=== PATIENT | female | born 2000 | race Caucasian/White ===

== ENCOUNTER 2024-08-09 14:31 | Inpatient (IN) ==
[2024-08-09 16:41] LABS: Basophils # (auto) 0.05 K/uL (0.00-0.20); Basophils % (auto) 0.5 %; Eosinophils % (auto) 1.9 %; Hematocrit (blood only) 36.1 % (37.0-47.0); Hemoglobin 11.9 g/dl (12.0-16.0); Immature Granulocytes # (auto) 0.06 K/uL (0.01-0.20); Immature Granulocytes % (auto) 0.6 %; Lymphocytes # (auto) 2.18 K/uL (1.20-3.40); Lymphocytes % (auto) 20.8 %; Mean Corpuscular Hemoglobin 30.3 pg (25.0-34.0); Mean Corpuscular Volume 91.9 fL (80.0-100.0); Mean Platelet Volume 9.7 fL (9.4-12.4); Monocytes # (auto) 0.76 K/uL (0.11-0.59); Monocytes % (auto) 7.3 %; Neutrophils # (auto) 7.22 K/uL (1.40-6.50); Neutrophils % (auto) 68.9 %; Platelet Count 281 K/uL (130-400); RDW Coefficient of Variation 12.8 % (11.5-14.5); RDW Standard Deviation 42.5 fL (36.4-46.3); Red Blood Count 3.93 M/uL (4.20-5.40); White Blood Count 10.47 K/ul (4.8-10.8)
[2024-08-09] MEDS: SODIUM CHLORIDE 0.9% 1,000 ML IV ONE (17:00)
[2024-08-09 17:01] LABS: Albumin Globulin Ratio 1.5 (0.9-2); Albumin Level 4.3 gm/dl (3.4-5.0); BUN Creatinine Ratio 16.5 (10-20); Bilirubin,Total 0.5 mg/dl (0.2-1.0); Calcium 9.4 mg/dl (8.6-10.3); Creatinine Clr Calc Pharmacy 113.6 ml/min; Globulin 2.8 gm/dl (2.5-4.0); Potassium 4.1 mmol/L (3.5-5.1); Total Protein 7.1 gm/dl (6.0-8.3)
--- NOTE | 2024-08-09 18:27 | Ultrasound Report ---
APPENDIX ULTRASOUND HISTORY: Right lower quadrant abdominal pain. COMPARISON: None. FINDINGS: The appendix was not visualized by sonography. A small amount of fluid within the right low er quadrant was noted. IMPRESSION: 1. Nonvisualization of the appendix. 2. Small amount of fluid within the right lower quadrant. ACT 112: Negative or not required by law. Electronically signed by: Osvaldo Luna M.D. 08/09/2024 6:25 PM
--- NOTE | 2024-08-09 18:35 | Ultrasound Report ---
PELVIC ULTRASOUND CLINICAL HISTORY: Right lower quadrant pain. COMPARISON STUDY: None. TECHNIQUE: Transabdominal and transvaginal sonography of the pelvis was performed. FINDINGS: Uterus measures 7.4 x 3.7 x 6.4 cm. Endometrium is normal thickness, measuring 5 mm. There is color flow within each ovary. The right ovary measures 3.3 x 1.7 x 2.4 cm and the left ovary measu res 4.1 x 1.8 x 2.7 cm. A small amount of fluid within the pelvis is present. IMPRESSION: 1. Unremarkable sonographic appearance of the uterus and ovaries. 2. Small amount of fluid within the pelvis. ACT 112: Negative or not required by law. Electronically signed by: Osvaldo Luna M.D. 08/09/2024 6:33 PM
[2024-08-09] MEDS: OPTIRAY 320 100ml IV ONE (19:33)
--- NOTE | 2024-08-09 20:14 | CT Scan Report ---
Exam(s): CT ABDOMEN + PELVIS With Contrast IV Amt: 91 ml optiray 320 EXAM: CT Abdomen and Pelvis With Intravenous Contrast CLINICAL HISTORY: Reason for exam: rlq pain. TECHNIQUE: Axial computed tomography images of the abdomen and pelvis with intravenous contrast. CTDI is es edema 15.93 mGy and DLP is 768.86 mGy- cm. Automated exposure control was utilized for the study. A dose lowering technique was utilized adhering to the principles of ALARA. CONTRAST: Patient received 91 ml optiray 320 of IV contrast COMPARISON: No relevant prior studies available. FINDINGS: Lung bases: Unremarkable. No mass. No consolidation. ABDOMEN: Liver: Unremarkable. No mass. Gallbladder and bile ducts: Unremarkable. No calcified stones. No ductal dilation. Pancreas: Unremarkable. No mass. No ductal dilation. Spleen: Unremarkable. No splenomegaly. Adrenals: Unremarkable. No mass. Kidneys and ureters: Unremarkable. No solid mass. No hydronephrosis. Stomach and bowel: Unremarkable. No obstruction. No mucosal thickening. PELVIS: Appendix: There is a retrocecal inflamed appendix measuring up to 11 mm in diameter. Periappendiceal inflammatory stranding is seen. Bladder: Unremarkable. No mass. Reproductive: Unremarkable as visualized. ABDOMEN and PELVIS: Intraperitoneal space: Trace free fluid seen in the pelvis. No free air. Bones/joints: No acute fracture. No dislocation. Soft tissues: Unremarkable. Vasculature: Unremarkable. No abdominal aortic aneurysm. Lymph nodes: Unremarkable. No enlarged lymph nodes. IMPRESSION: Acute nonperforated appendicitis Electronically signed by: Franco Solorio MD 08/09/24 20:13 PM
[2024-08-09 20:47] LABS: Appearance Urine Clear (Clear); Bilirubin Urine Negative (Negative); Blood Urine Negative (Negative); Color Urine Yellow; Glucose Urine UA Negative (Negative); Ketones Urine Negative (Negative); Leukocyte Esterase Urine Negative (Negative); Nitrite Urine Negative (Negative); Protein Urine Negative (Negative); Specific Gravity Urine 1.004 (1.000-1.030); Urobilinogen Urine Negative (Negative)
[2024-08-09] MEDS: cefOXitin 2,000 MG/60 ML BAG IV STA (20:50)
[2024-08-09] MEDS: PIPERACILLIN/TAZOBACTAM 4.5 GM/100 ML BAG IV ONE (21:06)
[2024-08-09] MEDS ORDERED: ONDANSETRON INJ 2 MG/ML 2 ML VIAL IV PRN (21:22)
[2024-08-09] MEDS ORDERED: MoRPHine SULFATE 4 MG/ML 1 ML CARP\\VIAL IV PRN (21:22)
[2024-08-09] MEDS ORDERED: ACETAMINOPHEN 1,000 MG/100 ML VIAL IV PRN (21:22)
--- NOTE | 2024-08-09 21:22 | History & Physical Report ---
<Statement entered by Jennifer Connolly DO - 08/10/24 08:24> This case was discussed with the surgical PA. Consent will be obtained for laparoscopic appendectomy planned for this am. Date of Service August 09, 2024 Assessment & Plan (1) Appendicitis: Plan: I discussed the case with the treating emergency room physician and due to the patient's clinical presentation and findings on imaging she will be admitted to the surgical service proceeding as follows: N.p.o. status will be implemented Analgesics will be provided Antiemetics to be provided Will hydrate her with IV fluids Antibiotics in form of Zosyn have been initiated in the emergency department will continue We will tentatively planning on having the patient undergo an appendectomy with Dr. Gale on 08/10/2024. At the time of my interview with the patient she was nontoxic-appearing. She was normotensive without tachycardia fever and did not exhibit cytosis or acute kidney injury. There is also noteworthy to mention that the patient did have solid oral intake up until approximate 4:00 PM and I did discuss with her anesthesia department and they prefer that the patient be n.p.o. for a minimum of 6 hours prior to undergoing general anesthesia. Again, the patient is nontoxic-appearing so we will proceed with the plan as outlined above and plan for surgical intervention on 08/10/2024 Will use SCDs for DVT prevention, no chemical means due to planned surgery She will be a level 1 full code At the patient's request I did call her parents and spoke with her mother Sara and updated her on the above. She can be reached at [phone] Addendum (5:10 AM) Patient revisited at bedside. She notes that she has been resting comfortably throughout the night. She denies any worsening abdominal pain. She denies any fevers, shakes, or chills. She has remained normotensive without tachycardia or fever. Her abdominal exam is essentially benign at this time. Patient's mother has arrived since her admission and she was updated at bedside. Will continue with plan as outlined above History of Present Illness Chief Complaint: Abdominal pain Primary Care Provider: [facility] This is a 23-year-old female who presented to the emergency department secondary to abdominal pain for approximately 2 days. She says that the pain has been confined to the right lower quadrant. She does not have any nausea or vomiting. She felt warm at times but admits she did not take her temperature. She notes that the pain was slightly improved with taking Advil and worse with certain movements. Because the pain did not improve over 2 days however she presented the emergency department. She has never had any abdominal surgeries in the past. The patient notes that she was eating fruit snacks up until approximately 4:00 PM today and has been drinking water since arrival to the emergency department. Since arrival to the hospital the patient has had labs and imaging which independent reviewed. Patient did have a pelvic ultrasound that showed an unremarkable sonographic appearance of the uterus and ovaries without small amount of fluid in the pelvis. She had an appendix ultrasound that showed nonvisualization of the appendix and a small amount of fluid in the right lower quadrant. A CT scan of the abdomen and pelvis was ultimately performed which showed that the patient had a retrocecal inflamed appendix which measured approximately 11 mm in diameter. There is some periappendiceal inflammatory stranding. There is trace fluid in the pelvis but no free air was noted. The appendix appeared nonperforated. Labs included CBC with a white blood cell count and platelet count were normal. Hemoglobin and hematocrit were 11.9 and 36.1. Chemistry profile showed sodium and potassium as well as the BUN and creatinine were normal. There is no elevation of her LFTs or lipase. A urinalysis was not indicative of infection. A test was noted to be negative. At the time of my interview she was resting comfortably bed and she was in no distress. Concerning past medical history the patient has been treated for depression Concerning past surgical history she has had ear tubes as a child Concerning allergies she denies any allergies Concerning social history she does not smoke or vape Concerning family history she says that several family members had ovarian cysts Allergies Allergy/AdvReac Type Severity Reaction Status Date / Time No Known Allergies Allergy Unverified 08/09/24 21:46 Past Med/Surg History Problem List (Updated 08/09/24 @ 21:57 by Enzo Jc MD) Appendicitis (Acute) Medical History No pertinent past medical history No pertinent family history Surgical History No pertinent past surgical history Social History Smoking Status: Never smoker Second Hand Exposure: No; Do You Dip or Chew Tobacco: No; Tobacco Cessation Education Requested by Patient: No Hx Alcohol Use: Yes Alcohol type: beer Hx Substance Use: No Preferred Language: Cambodian Communication Ability: Effective Residence Hall Director Required: No Beliefs That Will Affect Care: None Current Living Situation: Other Current Living Situation Comment: [employer] student, [place] room-mate Other Information That Helps Us Care for You: No Feels Safe at Home: Yes Safety Concerns: Feels Safe At This Time Assistive Devices: None Review of Systems Review of Systems: All systems reviewed & are unremarkable except as noted in HPI & below Physical Exam Constitutional: WD/WN, vitals as above Eyes: no conjunctival abnormality ENMT: Ears: no hearing impairment and no external ear abnormality Mouth: no oropharynx abnormality Neck: trachea midline Respiratory: normal respiratory effort; no respiratory distress and no labored breathing Cardiovascular: Rate/Rhythm: regular rate and regular rhythm Gastrointestinal (Abdomen): Abdomen is soft and nondistended. Abdomen is not rigid. Patient did have pain with deep palpation of right lower quadrant with some slight rebound tenderness noted. Patient does not have any guarding noted. Musculoskeletal: No calf tenderness Skin: no rashes Neurologic: moves all extremities Psychiatric: Orientation: alert and oriented x 3 Affect: + anxious affect Results & Data Results & Data Vital Signs (Past 12 Hours) Vital Signs Temp Pulse Pulse Resp BP BP Pulse Ox 08/09/24 21:08 54 L 18 98 08/09/24 21:00 55 L 17 121/65 98 08/09/24 14:50 37 C 71 18 111/71 97 O2 Del Method 08/09/24 21:08 Room Air 08/09/24 21:00 Room Air 08/09/24 14:50 Room Air PG Care Time/CCT Total # of Minutes Spent Total Time Spent with Patient: Total time spent is greater than 50% in coordination of care (as documented) at patient's floor/unit and/or counseling patient: Coding Level of Care Code 65633 INT INP/OBS CARE 3/75MIN Diagnoses Appendicitis K37
[2024-08-09] MEDS: Patient's ALLERGY Info needs ENTERED STA (21:49)
--- NOTE | 2024-08-09 21:57 | Emergency Department Note ---
History of Present Illness General Chief Complaint: Abdominal Pain Stated Complaint: ABD PAIN Time Seen by Provider: 08/09/24 16:23 History of Present Illness Provider Complaint: abdominal pain Onset (ago): 3 day(s) Pain Consistency: intermittent Location: RLQ Severity: moderate Maximum Pain Intensity: 4 Current Pain Intensity: 4 Quality: + sharp Relieved By: + nothing Exacerbated By: + nothing Context: no foreign travel, no possible food poisoning, no sick contacts, no recent antibiotic use, no recent surgery/procedure, no recent injury or no history of similar episodes Associated Symptoms: no nausea, no vomiting, no diarrhea, no fever, no chills, no constipation, no dysuria, no hematemesis, no melena, no hematuria, no headache, no neck pain, no chest pain and no breathing difficulty Related Data Last Menstrual Period: 1 week Patient Confirmed : No Allergies Allergy/AdvReac Type Severity Reaction Status Date / Time No Known Allergies Allergy Unverified 08/09/24 21:46 Past Med/Surg History Problem List (Updated 08/09/24 @ 21:57 by Enzo Jc MD) Appendicitis (Acute) Medical History No pertinent past medical history No pertinent family history Surgical History No pertinent past surgical history Social History Smoking Status: Never smoker Preferred Language: Iraqi Feels Safe at Home: Yes Physical Exam 2 Vital Signs: Vital Signs - 24 hr 08/09/24 14:50 08/09/24 21:00 08/09/24 21:08 Temperature 37 C Temperature Source Temporal Artery Sc an Pulse Rate 71 54 L Pulse Rate [Finger ] 55 L Respiratory Rate 18 17 18 Respiratory Effort / Characteristics Non-Labored Sponta neous Respiratory Depth Normal Respiratory Patter n Regular Blood Pressure 111/71 Blood Pressure [Ri ght Arm] 121/65 Blood Pressure Reena n 84 Blood Pressure Reena n [Right Arm] 83 Pulse Oximetry 97 98 98 Oxygen Delivery Me thod Room Air Room Air Room Air Sepsis Recent Feve r Within 48 Hours No Sepsis New/Unexpla ined Change in Men galina Status No Sepsis Action Take n by Nursing No Action Required 08/09/24 21:47 Temperature Temperature Source Pulse Rate Pulse Rate [Finger ] 60 Respiratory Rate 16 Respiratory Effort / Characteristics Non-Labored Sponta neous Respiratory Depth Normal Respiratory Patter n Regular Blood Pressure Blood Pressure [Ri ght Arm] 121/65 Blood Pressure Reena n Blood Pressure Reena n [Right Arm] 83 Pulse Oximetry 99 Oxygen Delivery Me thod Room Air Sepsis Recent Feve r Within 48 Hours Sepsis New/Unexpla ined Change in Men galina Status Sepsis Action Take n by Nursing Physical Exam: Physical Exam GENERAL: oriented to person, place, and time. appears well-developed and well- nourished. She does not appear distressed. HENT: Exam performed. -Head: Normocephalic and atraumatic. -Right Ear: External ear normal. No mastoid erythema -Left Ear: External ear normal. No mastoid erythema -Mouth/Throat: The oropharynx is clear and moist. No trismus in the jaw. No dental abscesses or uvula swelling. No oropharyngeal exudate or tonsillar abscesses. EYES: Conjunctivae and EOM are normal.Right eye exhibits no discharge. Left eye exhibits no discharge. No scleral icterus. NECK: Normal range of motion. Neck supple. No JVD present. No tracheal deviation and normal range of motion present. CV: Normal rate, regular rhythm, normal heart sounds and intact distal pulses. There is no peripheral edema. Palpable radial pulses bue. PULM/CHEST: Effort normal and breath sounds normal. No respiratory distress. No stridor. no wheezes.no rales. -Chest Wall: no tenderness to palpation ABD: The abdomen is soft. Bowel sounds are normal. no distension. No mass is present. There is tenderness to palpation of the right lower quadrant. There is no rebound, no guarding, no Ugalde's sign and Rovsig negative MUSC/SKEL: Normal range of motion. There is no peripheral edema, tenderness or deformity. NEURO: Motor and sensation grossly intact. SKIN: Skin is warm and dry. not diaphoretic. PSYCH: normal mood and affect. Behavior is normal. Judgment and thought content normal. Course Course 162: The patient was evaluated in room D2. A complete history and physical exam was performed Cardiac monitoring: An order was placed for continuous cardiac monitoring. The monitor shows a rate of 60 with sinus rhythm interpreted by me 2105: Vital signs stable. Labs are unremarkable. Imaging shows appendicitis. Patient will be admitted to general surgery. Cefoxitin ordered for the patient. Mack Falcon will evaluate the patient for Dr. Mohamud Pacheco Administered Medications Discontinued Medications Sodium Chloride (Nss) 1,000 mls @ 999 mls/hr IV .Q1H1M ONE Stop: 08/09/24 17:49 Last Infusion: 08/09/24 19:46 Dose: Infused Documented By: Admin: 08/09/24 17:00 Dose: 999 mls/hr Documented By: RACIEL Cefoxitin Sodium (Mefoxin) 2,000 mg in 60 mls @ 100 mls/hr IV NOW STA Stop: 08/09/24 21:06 Last Admin: 08/09/24 20:50 Dose: Not Given Documented By: FARHEEN Piperacillin Sod/Tazobactam Sod (Zosyn) 4.5 gm in 100 mls @ 200 mls/hr IV NOW ONE Stop: 08/09/24 21:18 Last Infusion: 08/09/24 21:40 Dose: Infused Documented By: Admin: 08/09/24 21:06 Dose: 200 mls/hr Documented By: FARHEEN Ioversol (Optiray 320 100ml) 91 ml IV ONCE ONE Stop: 08/09/24 19:34 Last Admin: 08/09/24 19:33 Dose: 91 ml Documented By: ANDREI Miscellaneous Information (Patient's Allergy Info Needs Entered) 1 each N/A ONE STA Stop: 08/09/24 21:33 Last Admin: 08/09/24 21:49 Dose: 1 each Documented By: FARHEEN Medical Decision Making Laboratory Data Attestation: I reviewed the patient's lab results. 08/09/24 15:41 08/09/24 15:41 Lab Results 08/09/24 08/09/24 08/09/24 Range/Units 15:41 20:30 20:41 WBC 10.47 (4.8-10.8) K/ul RBC 3.93 L (4.20-5.40) M/uL Hgb 11.9 L (12.0-16.0) g/dl Hct 36.1 L (37.0-47.0) % MCV 91.9 (80.0-100.0) fL MCH 30.3 (25.0-34.0) pg MCHC 33.0 (32.0-36.0) g/dL RDW Std Deviation 42.5 (36.4-46.3) fL RDW Coeff of Rolf 12.8 (11.5-14.5) % Plt Count 281 (130-400) K/uL MPV 9.7 (9.4-12.4) fL Immature Gran % (Auto) 0.6 % Neut % (Auto) 68.9 % Lymph % (Auto) 20.8 % [place] % (Auto) 7.3 % Eos % (Auto) 1.9 % Baso % (Auto) 0.5 % Neut # (Auto) 7.22 H (1.40-6.50) K/uL Lymph # (Auto) 2.18 (1.20-3.40) K/uL [place] # (Auto) 0.76 H (0.11-0.59) K/uL Eos # (Auto) 0.20 (0.00-0.50) K/uL Baso # (Auto) 0.05 (0.00-0.20) K/uL Immature Gran # (Auto) 0.06 (0.01-0.20) K/uL Sodium 138 (136-145) mmol/L Potassium 4.1 (3.5-5.1) mmol/L Chloride 103 (98-107) mmol/L Carbon Dioxide 28 (21-32) mmol/L Anion Gap 7 (3-11) BUN 13 (6-23) mg/dl Creatinine 0.79 (0.6-1.2) mg/dl Est Cr Clr Drug Dosing 113.6 ml/min Est GFR ( Amer) 124.0 ml/min Est GFR (Non-Af Amer) 107.0 ml/min BUN/Creatinine Ratio 16.5 (10-20) Glucose 90 (70-99(Fasting)) mg/dl Calcium 9.4 (8.6-10.3) mg/dl Total Bilirubin 0.5 (0.2-1.0) mg/dl AST 17 (13-39) U/L ALT 9 (7-52) U/L Alkaline Phosphatase 86 (34-104) U/L Total Protein 7.1 (6.0-8.3) gm/dl Albumin 4.3 (3.4-5.0) gm/dl Globulin 2.8 (2.5-4.0) gm/dl Albumin/Globulin Ratio 1.5 (0.9-2) Lipase 26 (11-82) U/L Urine Color Yellow Urine Appearance Clear (Clear) Urine pH 7.0 (4.5-7.5) Ur Specific [place] 1.004 (1.000-1.030) Urine Protein Negative (Negative) Urine Glucose (UA) Negative (Negative) Urine Ketones Negative (Negative) Urine Blood Negative (Negative) Urine Nitrite Negative (Negative) Urine Bilirubin Negative (Negative) Urine Urobilinogen Negative (Negative) Ur Leukocyte Esterase Negative (Negative) POC Ur Test NEG (NEG) Imaging Data Radiologist's Impression: Abdomen/Pelvis CT 08/09/24 16:49 Exam(s): CT ABDOMEN + PELVIS With Contrast IV Amt: 91 ml optiray 320 EXAM: CT Abdomen and Pelvis With Intravenous Contrast CLINICAL HISTORY: Reason for exam: rlq pain. TECHNIQUE: Axial computed tomography images of the abdomen and pelvis with intravenous contrast. CTDI is es edema 15.93 mGy and DLP is 768.86 mGy- cm. Automated exposure control was utilized for the study. A dose lowering technique was utilized adhering to the principles of ALARA. CONTRAST: Patient received 91 ml optiray 320 of IV contrast COMPARISON: No relevant prior studies available. FINDINGS: Lung bases: Unremarkable. No mass. No consolidation. ABDOMEN: Liver: Unremarkable. No mass. Gallbladder and bile ducts: Unremarkable. No calcified stones. No ductal dilation. Pancreas: Unremarkable. No mass. No ductal dilation. Spleen: Unremarkable. No splenomegaly. Adrenals: Unremarkable. No mass. Kidneys and ureters: Unremarkable. No solid mass. No hydronephrosis. Stomach and bowel: Unremarkable. No obstruction. No mucosal thickening. PELVIS: Appendix: There is a retrocecal inflamed appendix measuring up to 11 mm in diameter. Periappendiceal inflammatory stranding is seen. Bladder: Unremarkable. No mass. Reproductive: Unremarkable as visualized. ABDOMEN and PELVIS: Intraperitoneal space: Trace free fluid seen in the pelvis. No free air. Bones/joints: No acute fracture. No dislocation. Soft tissues: Unremarkable. Vasculature: Unremarkable. No abdominal aortic aneurysm. Lymph nodes: Unremarkable. No enlarged lymph nodes. IMPRESSION: Acute nonperforated appendicitis Electronically signed by: Franco Solorio MD 08/09/24 20:13 PM Appendix Ultrasound 08/09/24 16:49 APPENDIX ULTRASOUND HISTORY: Right lower quadrant abdominal pain. COMPARISON: None. FINDINGS: The appendix was not visualized by sonography. A small amount of fluid within the right lower quadrant was noted. IMPRESSION: 1. Nonvisualization of the appendix. 2. Small amount of fluid within the right lower quadrant. ACT 112: Negative or not required by law. Electronically signed by: Osvaldo Luna M.D. 08/09/2024 6:25 PM Pelvis Ultrasound 08/09/24 16:49 PELVIC ULTRASOUND CLINICAL HISTORY: Right lower quadrant pain. COMPARISON STUDY: None. TECHNIQUE: Transabdominal and transvaginal sonography of the pelvis was performed. FINDINGS: Uterus measures 7.4 x 3.7 x 6.4 cm. Endometrium is normal thickness, measuring 5 mm. There is color flow within each ovary. The right ovary measures 3.3 x 1.7 x 2.4 cm and the left ovary measures 4.1 x 1.8 x 2.7 cm. A small amount of fluid within the pelvis is present. IMPRESSION: 1. Unremarkable sonographic appearance of the uterus and ovaries. 2. Small amount of fluid within the pelvis. ACT 112: Negative or not required by law. Electronically signed by: Osvaldo Luna M.D. 08/09/2024 6:33 PM MDM Narrative 1623: The patient was evaluated in room D2. A complete history and physical exam was performed Cardiac monitoring: An order was placed for continuous cardiac monitoring. The monitor shows a rate of 60 with sinus rhythm interpreted by ak 2105: Vital signs stable. Labs are unremarkable. Imaging shows appendicitis. Patient will be admitted to general surgery. Cefoxitin ordered for the patient. Mack Falcon will evaluate the patient for Dr. Mohamud Pacheco Impression & Plan Appendicitis Discharge Plan Visit Data Chief Complaint: Abdominal Pain Stated Complaint: ABD PAIN ED Provider: Enzo Jc Discharge Problem: Appendicitis Patient Disposition: Admitted As Inpatient Forms Stand Alone Forms: [facility] Referrals Referrals: [place] [Primary Care Provider] - Discharge Problem: Appendicitis Qualifiers: Appendicitis type: acute appendicitis Acute appendicitis type: unspecified acute appendicitis type Qualified Code(s): K35.80 - Unspecified acute appendicitis
[2024-08-09] MEDS: SODIUM CHLORIDE 0.9% 1,000 ML IV SCH (22:35)
[2024-08-09] MEDS: MELATONIN 3 MG TAB PO PRN (23:12)
[2024-08-10] MEDS: PIPERACILLIN/TAZOBACTAM 4.5 GM/100 ML BAG IV SCH (01:47)
--- NOTE | 2024-08-10 08:31 | Anesthesiology Consultation ---
Date of Service August 10, 2024 Assessment & Plan Chart Review Chart Review: Acceptable Risk for Surgery and Patient NOT seen in Pre Admission Testing Consults Requested none ASA ASA2 Proposed Anesthesia Anesthesia Type: General History Surgery Operation Date: 08/10/24 07:10 Proposed Procedures p Laparoscopic Appendectomy Possible Open - Jennifer Connolly, Height/Weight Height: 5 ft 8 in Weight: 69.4 kg Allergies Allergy/AdvReac Type Severity Reaction Status Date / Time No Known Allergies Allergy Unverified 08/09/24 21:46 Medications Home Medications Medication Instructions Recorded Confirmed Last Taken oxycodone 5 mg tablet 5 - 10 mg (1 - 2 x 5 mg) PO 08/10/24 Unknown .[id number] PRN pain #15 tabs Active Medications Generic Name Dose Route Start Last Admin Trade Name Freq PRN Reason Stop Dose Admin Sodium Chloride 1,000 mls @ 125 mls/hr 08/09/24 21:30 08/10/24 05:52 Nss IV 09/08/24 21:29 125 mls/hr .Q8H [place] Administration Piperacillin Sod/Tazobactam Sod 4.5 gm in 100 mls @ 25 mls/hr 08/10/24 02:00 08/10/24 05:48 Zosyn IV 08/20/24 01:59 Infused Q8H [place] Infusion Melatonin 3 mg 08/09/24 22:53 08/09/24 23:12 Melatonin 3 Mg Tab PO 09/08/24 22:52 3 mg HS PRN Administration Sleep Past Medical History Medical History No pertinent past medical history No pertinent family history anemia Exercise / Class Metabolic Activity 1 > 8 Run/Swim/Ski/Tennis Past Surgical History Surgical History No pertinent past surgical history Past Anesthesia History No Hx of Anesthesia Complications and No Family Hx of Anesthesia Complications History of PONV No Hx of PONV and No Hx of Motion Sickness Social History Smoking Status: Never smoker Do You Dip or Chew Tobacco: No Hx Alcohol Use: Yes Alcohol type: beer alcohol intake frequency: a few times a week Hx Substance Use: No Physical Exam Vital Signs Last Vital Signs Temp 36.6 C 08/10/24 07:04 Pulse 52 L 08/10/24 07:04 Resp 18 08/10/24 07:04 BP 105/67 08/10/24 07:04 Pulse Ox 100 08/10/24 07:04 O2 Del Method Room Air 08/10/24 07:04 Testing Laboratory Results 08/09/24 15:41 08/09/24 15:41 Urine Color Yellow 08/09/24 20:30 Urine Appearance Clear (Clear) 08/09/24 20:30 Urine pH 7.0 (4.5-7.5) 08/09/24 20:30 Ur Specific [place] 1.004 (1.000-1.030) 08/09/24 20:30 Urine Protein Negative (Negative) 08/09/24 20:30 Urine Glucose (UA) Negative (Negative) 08/09/24 20:30 Urine Ketones Negative (Negative) 08/09/24 20:30 Urine Nitrite Negative (Negative) 08/09/24 20:30 Ur Leukocyte Esterase Negative (Negative) 08/09/24 20:30 08/09/24 20:41 POC Ur Test NEG
[2024-08-10] MEDS ORDERED: PROPOFOL IV EMULSION 10 MG/ML 20 ML VIAL IV ONE (08:36)
[2024-08-10] MEDS ORDERED: DEXAMETHASONE SOD INJ 4 MG/ML VIAL ONE (08:36)
[2024-08-10] MEDS ORDERED: ONDANSETRON INJ 2 MG/ML 2 ML VIAL ONE (08:36)
[2024-08-10] MEDS ORDERED: LIDOCAINE 2% 2 ML VIAL/AMP(20MG/ML) INFIL ONE (08:36)
[2024-08-10] MEDS ORDERED: ROCURONIUM BROMIDE 10 MG/ML 5 ML VIAL IV ONE (08:36)
[2024-08-10] MEDS ORDERED: MIDAZOLAM HCL 1 MG/ML 2ML VIAL ONE (08:37)
[2024-08-10] MEDS ORDERED: fentaNYL citrate PF 100 MCG/2 ML VIAL ONE (08:37)
[2024-08-10] MEDS: LACTATED RINGER'S 1,000 ML IV SCH ×2 (09:11→11:59)
--- NOTE | 2024-08-10 09:14 | History & Physical Bridge Note ---
Date of Service August 10, 2024 History & Physical Bridge Note I have examined the patient, reviewed the History & Physical and in the interval since the performance of the History & Physical I have noted the following changes of clinical significance: no changes noted, I have seen and examined the patient this am with her mother at bedside. I discussed laparoscopic appendectomy with them including the risks and benefits. All of her questions were answered. Consent was obtained.
[2024-08-10] MEDS ORDERED: ePHEDrine sulfate 50 MG/ML AMP IV PRN (09:18)
[2024-08-10] MEDS ORDERED: ONDANSETRON INJ 2 MG/ML 2 ML VIAL IV PRN (09:18)
[2024-08-10] MEDS ORDERED: PROMETHAZINE HCL 6.25 MG in SODIUM CHLORIDE 0.9% 50 ML IV PRN (09:18)
[2024-08-10] MEDS ORDERED: ATROPINE SULFATE 0.1 MG/ML 10ML SYR IV PRN (09:18)
[2024-08-10] MEDS ORDERED: HYDROmorphone INJ 1 MG/ML SYRINGE IV PRN (09:18)
[2024-08-10] MEDS ORDERED: NALOXONE HCL 0.4 MG/1 ML VIAL/CARP IV PRN (09:18)
[2024-08-10] MEDS ORDERED: fentaNYL citrate PF 100 MCG/2 ML VIAL IV PRN (09:18)
[2024-08-10] MEDS ORDERED: FLUMAZENIL 0.1 MG/1 ML 10 ML VIAL IV PRN (09:18)
[2024-08-10] MEDS ORDERED: GLYCOPYRROLATE 0.2 MG/ML VIAL ONE (10:07)
[2024-08-10] MEDS ORDERED: SUGAMMADEX SODIUM 200 MG/2 ML VIAL IV ONE (10:07)
[2024-08-10] MEDS: BUPIVACAINE/EPINEPHRINE 0.5% MPF 1:200,000 30 ML VIAL ONE (10:19)
--- NOTE | 2024-08-10 10:26 | Operative Report ---
PG Post Operative Report Pre & Post Diagnosis Operation Date: 08/10/24 07:10 Pre-Op Diagnosis: Appendicitis Post-Op Diagnosis: Appendicitis I identified the patient and participated in the time-out.: Yes Procedure Operation Date: 08/10/24 07:10 Actual Procedures p Laparoscopic Appendectomy - Jennifer Connolly DO Surgeon Jennifer Connolly DO [employer] Ella Taveras NP Estimated Blood Loss 5 Findings Consistent with Post-Op Diagnosis inflamed and thickened appendix c/w early acute appendicitis without abscess, perforation or gangrene Specimens appendix Drains None Anesthesia Type General Complications None Indications RLQ pain for two days, pelvic and transvaginal US negative, CT c/w acute appy Description of Procedure The patient was brought back to the operating room and placed on the operating room table in supine position. She was connected to cardiac and oxygen monitoring. Supplemental O2 was provided and SCDs were applied to bilateral lower extremities. Prior to making all incisions local anesthetic was injected into the skin and subcutaneous tissues, incisions were made with an 11 blade. Intra-abdominal access was gained at the infraumbilical fold using a Veress needle for establishment of pneumoperitoneum to local pressure 15 mmHg using CO2 insufflation. A 5 mm trocar was inserted using direct visualization with a 5 mm laparoscope and Optiview port. 2 additional trocars inserted, 5 mm at suprapubic region 12 mm left lower quadrant. These were additionally inserted under direct visualization. No injury to cause intra-abdominal contents during insertion of trocars. The OR table was positioned in Trendelenburg left side down. Appendix identified at the right lower quadrant and a window was dissected using blunt dissection with a [place] dissector between the base of the appendix and cecum. A purple loaded 45 mm Endo CAMILO was used to ligate and transect the appendix away from the base of the cecum. The appendix and mesoappendix were then dissected away from the surrounding peritoneal attachments and the periappendiceal artery was ligated and transected all using a harmonic energy device. The appendix was placed in an Endo Catch bag and sent to pathology for further analysis. The area was inspected moved multiple times for hemostasis. There was no active bleeding identified. The area was gently irrigated and excess clips from the sleep lower were removed. The OR table was returned to the neutral position. Fluid was suctioned away from the pelvis and right lower quadrant right paracolic gutter and right upper quadrant. The instruments were removed, CO2 insufflation was discontinued and excess pneumoperitoneum was evacuated. The trocars were removed. The fascia at the left lower quadrant 12 mm port site was closed using 0 Vicryl suture. The remainder of the incisions were approximated using 4-0 suture and sealed with Dermabond. The patient tolerated the procedure well. She was awakened from anesthesia, extubated and transferred recovery in stable condition. I attest to the content of the Intraoperative Record and any orders documented therein. Any exceptions are noted below.
[2024-08-10] MEDS ORDERED: KETOROLAC 30 MG/ML VIAL ONE (10:40)
[2024-08-10] MEDS ORDERED: MoRPHine SULFATE 4 MG/ML 1 ML CARP\\VIAL IV PRN (11:31)
[2024-08-10] MEDS ORDERED: MoRPHine SULFATE 2 MG/ML CARP IV PRN (11:31)
[2024-08-10] MEDS ORDERED: oxyCODONE HCL IR 5 MG TAB (IMMEDIATE RELEASE) PO PRN ×2 (11:31)
--- NOTE | 2024-08-10 11:48 | Anesthesiology Progress Note ---
Date of Service August 10, 2024 Anesthesia Post Procedure Vital Signs Vital Signs: Temp Pulse Pulse Pulse Resp BP BP 08/10/24 11:25 36.9 C 60 18 99/63 L 08/10/24 11:10 36.8 C 53 L 18 101/57 L 08/10/24 11:00 78 15 102/58 L 08/10/24 10:50 62 19 111/62 08/10/24 10:40 67 22 109/66 08/10/24 10:34 36.3 C L 72 16 119/68 08/10/24 09:03 36.3 C L 59 L 20 118/69 08/10/24 07:04 36.6 C 52 L 18 105/67 08/09/24 21:57 08/09/24 21:47 60 16 121/65 08/09/24 21:35 36.3 C L 49 L 17 121/70 08/09/24 21:08 54 L 18 08/09/24 21:00 55 L 17 121/65 08/09/24 14:50 37 C 71 18 111/71 Pulse Ox O2 Del Method O2 Flow Rate 08/10/24 11:25 97 Room Air 08/10/24 11:10 95 Room Air 08/10/24 11:00 100 Room Air 08/10/24 10:50 99 Oxymask 3 08/10/24 10:40 100 Oxymask 3 08/10/24 10:34 100 Oxymask 5 08/10/24 09:03 97 Room Air 08/10/24 07:04 100 Room Air 08/09/24 21:57 Room Air 08/09/24 21:47 99 Room Air 08/09/24 21:35 99 Room Air 08/09/24 21:08 98 Room Air 08/09/24 21:00 98 Room Air 08/09/24 14:50 97 Room Air Pain Intensity Lower Abdomen: Pain Intensity: 2 Transfer of Care Handoff Completed per policy Notes Mental Status: alert / awake / arousable Patient Amnestic to Procedure: Yes Nausea / Vomiting: adequately controlled Pain: adequately controlled Airway Patency, RR, SpO2: stable & adequate BP & HR: stable & adequate Hydration State: stable & adequate Anesthetic Complications: no major complications apparent
[2024-08-10 11:59] VITALS: RESP 18
[2024-08-10] MEDS: ACETAMINOPHEN 325 MG TAB PO PRN (13:06)
[2024-08-10 14:20] VITALS: BP 107/68; PULSE 52; TEMP 97.5; O2SAT 98
--- NOTE | 2024-08-11 14:46 | Discharge Summary ---
Date of Service August 10, 2024 Admission HPI Per Admitting Provider This is a 23-year-old female who presented to the emergency department secondary to abdominal pain for approximately 2 days. She says that the pain has been confined to the right lower quadrant. She does not have any nausea or vomiting. She felt warm at times but admits she did not take her temperature. She notes that the pain was slightly improved with taking Advil and worse with certain movements. Because the pain did not improve over 2 days however she presented the emergency department. She has never had any abdominal surgeries in the past. The patient notes that she was eating fruit snacks up until approximately 4:00 PM today and has been drinking water since arrival to the emergency department. Since arrival to the hospital the patient has had labs and imaging which independent reviewed. Patient did have a pelvic ultrasound that showed an unremarkable sonographic appearance of the uterus and ovaries without small amount of fluid in the pelvis. She had an appendix ultrasound that showed nonvisualization of the appendix and a small amount of fluid in the right lower quadrant. A CT scan of the abdomen and pelvis was ultimately performed which showed that the patient had a retrocecal inflamed appendix which measured approximately 11 mm in diameter. There is some periappendiceal inflammatory stranding. There is trace fluid in the pelvis but no free air was noted. The appendix appeared nonperforated. Labs included CBC with a white blood cell count and platelet count were normal. Hemoglobin and hematocrit were 11.9 and 36.1. Chemistry profile showed sodium and potassium as well as the BUN and creatinine were normal. There is no elevation of her LFTs or lipase. A urinalysis was not indicative of infection. A test was noted to be negative. At the time of my interview she was resting comfortably bed and she was in no distress. Concerning past medical history the patient has been treated for depression Concerning past surgical history she has had ear tubes as a child Concerning allergies she denies any allergies Concerning social history she does not smoke or vape Concerning family history she says that several family members had ovarian cysts Principal Diagnosis acute appnedicititis Discharge Exam Respiratory normal respiratory effort Cardiovascular Rate/Rhythm: regular rate Gastrointestinal (Abdomen) Inspection/Auscultation: + abdominal surgical incision; abdomen not distended Percussion/Palpation: + abdomen tender and abdomen soft Discharge Data Allergies Allergy/AdvReac Type Severity Reaction Status Date / Time No Known Allergies Allergy Unverified 08/10/24 13:26 Consultations 08/09/24 20:32 ED Decision to Admit Stat Procedures Performed Operation Date: 08/10/24 07:10 Actual Procedures p Laparoscopic Appendectomy - Jennifer Connolly DO Ordered Studies 08/09/24 16:49 CT Abd and Pelvis [CT abd pelvis oral and IV con] Stat US appendix Stat US pelvic complete Stat US transvaginal Stat Hospital Course (1) Appendicitis: This is a 23 yo female who presented to the [facility] ED on 08/09/24 with abdominal pain. Workup in the ED showed a CT a/p concerning for acute appendicitis. The patient was tender to palpation in the RLQ. Patient made NPO with IVF and booked for the OR. On 08/10/24the patient went to the OR with Dr. Connolly for a laparoscopic appendectomy. The patient tolerated the procedure well, see operative report for full details. Post operatively the patient's diet was advanced, pain managed on prn meds, and incisions clean/dry/intact. The patient was deemed stable for discharge to home 08/10/24, return precautions and follow up recommendations were given and a prescription for oral pain medication was given. Total Time Total Time Spent Total Time Spent (In Minutes): 10 Discharge Plan Discharge Items Patient Disposition: Home - Self-Care Reason For Visit: APPY Discharge Diagnosis: laparoscopic appendectomy Activity: Per Instructions section Lifting: No more than 10 pounds Bathing Comment: you can shower 08/11/24. no soaking in pools or baths for 2 weeks Exercise/Sports: Wait until after follow-up appointment Driving/Machine Use: no driving if taking narcotic pain medication Non-emergency contact: Surgeon Call non-emergency contact if: you have any medication questions, your temperature is above 101.5, your wound has increased redness, your wound has increased drainage and your wound pain has increased Follow-up/Referrals: Gustavo Izaguirre PA-C [Physician County Administrator] - (call office for a follow up in 2 weeks ) [facility] [Primary Care Provider] - Jennifer Connolly DO [Physician] - Diet: Regular Addtl Attending Provider Instructions: You have surgical glue called dermabond on your surgical site incisions. You may shower with this on. This will tend to come off within a couple of weeks. Do not pick at it. You may purchase Tylenol over the counter if needed for addition pain control over the next few days. Take per manufacturers instructions, Do not take more than 3 grams of Tylenol in 24 hours. Don't take Ibuprofen for the next 2 days Pending Studies at Discharge: Yes Studies:: surgical pathology Stand-Alone Forms: My [facility], Smoking Cessation Medications and DC Order Prescriptions: New oxycodone 5 mg tablet 5 - 10 mg PO .[id number] MDD no more than 6 tabs in 24hours PRN (Reason: pain) Qty: 15 0RF Continued sertraline 100 mg Tablet 100 mg PO DAILY Discharge Orders: Discharge Order (Routine); Ordered 08/10/24 Ordered By: Ella Bedoya/Other Patient Handouts: Surgery for Appendicitis Admission Data Admit Date/Time: 08/09/24 21:25 Attending Provider: Jennifer Connolly Admit Provider: Gustavo Izaguirre Primary Care Provider: [facility] Other Providers: Jennifer Connolly Other Interventions: Discharge Summary Assessment (RN) Last Done: 08/10/24 15:23 Coding Level of Care Code 98840 IN/OBS DISCH 30 MIN/LESS Diagnoses Appendicitis K35.80 Acute appendicitis type: unspecified acute appendicitis type Appendicitis type: acute appendicitis
== END 2024-08-10 17:33 | disposition home or self-care (01) | DRG 399 ==
LOC: ED 14:31 → 3E 21:25
DX: K35.80 Unspecified acute appendicitis